=== PATIENT | male | born 1945 | race Two or more races ===

== ENCOUNTER 2018-09-28 07:32 | Day surgery (SDC) | payer OTHER, MEDICARE ==
--- NOTE | 2018-09-22 08:46 | HP ---
DATE OF ADMISSION: 09/28/2018 REASON FOR ADMISSION: Left inguinal hernia. BRIEF HISTORY: This is a 72-year-old gentleman who states he has had a left groin lump for the past several years. Patient states the lump has gotten a little larger. He has discomfort in the area when he does any type of Valsalva-type maneuver or bearing down. Patient has had no nausea, no vomiting, no change in bowel habits. PAST MEDICAL HISTORY: Significant for hypertension, hypercholesterolemia, diabetes, and kidney issues, and he has had bladder cancer. PAST SURGICAL HISTORY: None. MEDICATIONS: Enalapril, metformin, amlodipine, buspirone, and baby aspirin. ALLERGIES: None. SOCIAL HISTORY: Patient smokes. He drinks socially. PHYSICAL EXAMINATION: Abdomen: Soft, nontender, nondistended. He has a large left inguinal hernia with extension into the proximal scrotum. It is reducible. The left testicle and scrotum is within normal limits. On the right side, there is no obvious hernia. There is some laxity noted. Right scrotum and testicle is within normal limits. IMPRESSION/PLAN: Large left inguinal hernia: This is a 72-year-old gentleman who is symptomatic from a very large left inguinal hernia. At this point, we have discussed the various surgical approaches for this problem, and I think the patient should undergo a repair. Patient will be scheduled for a laparoscopic left inguinal hernia repair with mesh, at the time of surgery I will examine the right side, and if occult hernia is identified, it will be repaired at the same setting. If no hernia is noted, a piece of mesh will be placed in direct inguinal floor for reinforcement. The indications, alternatives, and complications of the procedure are discussed. Questions answered. We will plan to obtain written consent the day of surgery. VLADIMIR VICTORIA M.D. [id number] MTDFlako
[2018-09-27 14:52] VITALS: BMI 22.6
[2018-09-28] MEDS ORDERED: BUPIVACAINE HCL/PF 0.5% (5MG/ML) 10 ML VIAL ONE (07:51)
[2018-09-28] MEDS ORDERED: DEXAMETHASONE SOD PHOSPHATE/PF 10 MG/ML SDV ONE (07:51)
[2018-09-28] MEDS ORDERED: MIDAZOLAM HCL 2 MG/2 ML SINGLE DOSE VIAL ONE ×2 (07:52)
[2018-09-28] MEDS ORDERED: ceFAZolin SODIUM 1 GM VIAL ONE (07:58)
[2018-09-28] MEDS ORDERED: TAMSULOSIN HCL 0.4 MG CAP ONE (08:00)
[2018-09-28] MEDS ORDERED: TAMSULOSIN HCL 0.4 MG CAP PO ONE (08:30)
[2018-09-28] MEDS ORDERED: DEXAMETHASONE SOD PHOSPHATE 4 MG/1 ML VIAL ONE (08:37)
[2018-09-28] MEDS ORDERED: LIDOCAINE HCL/PF 2% SDV 5ML VIAL ONE (08:37)
[2018-09-28] MEDS ORDERED: ROCURONIUM BROMIDE 50 MG/5 ML VIAL ONE (08:37)
[2018-09-28] MEDS ORDERED: PROPOFOL 20 ML ONE (08:37)
[2018-09-28] MEDS ORDERED: ONDANSETRON 4 MG/2 ML VIAL ONE (08:37)
[2018-09-28] MEDS ORDERED: ceFAZolin SODIUM 1 GM VIAL IVPB ONE (09:07)
[2018-09-28] MEDS ORDERED: NEOSTIGMINE METHYLSULFATE 0.5 MG/1 ML - 10 ML MDV ONE (09:46)
[2018-09-28] MEDS ORDERED: GLYCOPYRROLATE 0.2 MG/1 ML VIAL ONE (09:47)
--- NOTE | 2018-09-28 10:24 | HP ---
DATE OF ADMISSION: 09/28/2018 BRIEF HISTORY: This is a redictation of an H and P due to [facility] Guidelines of 30 days. Please refer to original H and P from August 2018 for complete details. This is a 72-year-old gentleman admitted for left groin pain secondary to an inguinal hernia. He is now here for operative repair. PAST MEDICAL HISTORY: Hypertension, hypercholesterolemia, diabetes, kidney issues, and bladder cancer. PAST SURGICAL HISTORY: None. MEDICATIONS: Enalapril, metformin, amlodipine, buspirone, and baby aspirin. ALLERGIES: None. SOCIAL HISTORY: Patient smokes, drinks socially. PHYSICAL EXAMINATION: Gastrointestinal/Genitourinary: He has a large left inguinal hernia with extension into the proximal scrotum. The hernia was reducible. Left testicle and scrotum were within normal limits. On the right side, there is no obvious hernia but a large amount of laxity. Right scrotum and testicle are within normal limits. IMPRESSION/PLAN: Very large left inguinal/scrotal hernia. Patient is here today for attempt at laparoscopic repair of the hernia and examination of the right. Haven MORENO [id number]
[2018-09-28 11:19] VITALS: TEMP 97.6
[2018-09-28] MEDS ORDERED: oxyCODONE HCL 5 MG TABLET PO PRN (11:25)
[2018-09-28] MEDS ORDERED: ONDANSETRON 4 MG/2 ML VIAL IVPUSH PRN (11:25)
[2018-09-28] MEDS ORDERED: LACTATED RINGERS SOLUTION 1,000 ML IV SCH (11:30)
[2018-09-28 12:44] VITALS: BP 101/54; PULSE 84
--- NOTE | 2018-09-29 06:56 | OP ---
DATE OF OPERATION: 09/28/2018 PREOPERATIVE DIAGNOSIS: Large left inguinal scrotal hernia. POSTOPERATIVE DIAGNOSIS: Large left inguinal scrotal hernia, large left indirect inguinal hernia, right indirect inguinal hernia. PROCEDURE: Bilateral laparoscopic inguinal herniorrhaphy with mesh. SURGEON: Dejan Duenas MD DIVISION [employer]FFIC SUPERINTENDENT: Felix Davis DO ANESTHESIA: Meera Garcia MD (general). ESTIMATED BLOOD LOSS: Minimal. SPECIMEN: None. INDICATIONS FOR PROCEDURE: This is a 72-year-old gentleman with a large left inguinal scrotal hernia. He is symptomatic from this hernia and wished to have this repaired. DESCRIPTION OF PROCEDURE: Patient was identified and appropriately positioned on the operating room table. After placement of general anesthesia, the abdomen was prepped and draped in the usual sterile fashion with ChloraPrep. An infraumbilical incision was made deep into the subcutaneous tissues. The fascia of the rectus muscle on the left identified, divided sharply. The muscle split. Under direct vision, a dissector balloon followed by structural balloon placed. Also, under direct vision, a suprapubic 11-mm port placed. The following structures on the left side identified: Pubic tubercle, Coopers ligament, inferior epigastric vessels, spermatic cord, and lateral abdominal wall. During this dissection, the patient had a very large indirect left inguinal hernia sac, which was reduced back into the preperitoneal space. A 5 x 6 piece of Versatex mesh was keyhole placed through the suprapubic port site. The mesh wrapped around the cord structures laterally to reconstruct the internal ring. Laterally, the mesh was anchored to the anterior abdominal wall and lateral abdominal wall. Medially, the mesh anchored to the anterior abdominal wall, pubic tubercle, and Coopers ligament. Upon completion of the left side, similar structures on the right side identified. On the patients right side, he had a smaller indirect inguinal hernia sac. It was reduced back into the preperitoneal space with blunt dissection. Another 5 x 6 piece of Versatex mesh was keyholed, then placed through the suprapubic port site. The mesh wrapped around the cord structures laterally to reconstruct the internal ring. Medially, there was good overlap of the mesh in the midline. Medially, the mesh anchored to anterior abdominal wall, pubic tubercle, and Coopers ligament. All anterior abdominal wall and lateral abdominal wall anchors were placed under direct counter palpation. The anchoring system was AbsorbaTack, and the mesh was Versatex. The ports were removed. Port sites were noted to be hemostatic. The fascia at both port sites were reapproximated with interrupted 0 Vicryl suture. The skin was all closed with 4-0 subcuticular Biosyn followed by Dermabond. At the conclusion of the case, sponge counts were correct. ATTESTATION: Brief operative note handwritten on the preprinted form. [facility] will be queried prior to giving any narcotics. Haven MORENO [id number] cc: Ney Plascencia MD MTDD
== END 2018-09-28 12:44 | disposition home or self-care (01) ==
LOC: JASU-SURG 07:32 → EDBD 11:00 → JASU-SURG 12:44
PROVIDERS: ATTEND Surgery
PROC: 0YUA4JZ Supplement Bilateral Inguinal Region with Synthetic Substitute, Percutaneous Endoscopic Approach (ICD-10-PCS; principal; 2018-09-28 09:00)
DX: K40.20 Bilateral inguinal hernia, without obstruction or gangrene, not specified as recurrent (principal)
CPT/HCPCS: 82962; 94760

== ENCOUNTER 2019-03-07 09:46 | Day surgery (SDC) | payer OTHER, MEDICARE | END 2019-03-07 12:27 | disposition home or self-care (01) | LOC: JASU-ENDO 09:46 ==

== ENCOUNTER 2019-03-28 09:24 | Day surgery (SDC) | payer OTHER, MEDICARE ==
[2019-03-27 12:45] VITALS: BMI 25.9
[2019-03-28 11:15] VITALS: TEMP 97.7
[2019-03-28 13:59] VITALS: BP 133/61; PULSE 60
--- NOTE | 2019-03-30 18:01 | PATH ---
Surgical Pathology Report Patient Name: JESUSITA JIMENEZ [facility]. Rec. #: [id number] /Age/Gender: 1945 (Age: 73) / M Account: [id number] Location: ASU-ENDOSCOPY Taken: 03/28/2019 Received: 03/28/2019 Reported: 03/30/2019 Physicians: Laron Espinoza D.O. Specimen(s) Received A: POLYPECTOMY PROXIMAL TRANSVERSE B: BX POLYP CECUM x2 C: BX POLYP MID TRANSVERSE COLON D: BX POLYP DESCENDING COLON E: BX POLYP SIGMOID COLON X2 F: BIOPSY POLYP DISTAL SIGMOID COLON G: BIOPSY POLYP RECTO-SIGMOID COLON Clinical History Screening. Postoperative diagnosis: Colon polyps, hemorrhoids Final Diagnosis A. PROXIMAL TRANSVERSE COLON POLYP, POLYPECTOMY: TUBULAR ADENOMA. B. CECUM POLYP X 2, POLYPECTOMY: TUBULAR ADENOMA, TWO FRAGMENTS. C. MID TRANSVERSE COLON POLYP, POLYPECTOMY: HYPERPLASTIC POLYP. D. DESCENDING COLON POLYP, POLYPECTOMY: TUBULAR ADENOMA. E. SIGMOID COLON POLYP X 2, POLYPECTOMY: TUBULAR ADENOMA, MULTIPLE FRAGMENTS. F. DISTAL SIGMOID COLON POLYP, POLYPECTOMY: TUBULAR ADENOMA. G. RECTOSIGMOID COLON POLYP, POLYPECTOMY: TUBULAR ADENOMA. Electronically Signed Ida Singleton M.D. Gross Description A. Received in formalin, labeled "proximal transverse, polypectomy" are 2 cervantes, irregular portions of soft tissue measuring 0.2 cm and 0.4 cm. in greatest dimension. The specimens are submitted in toto in one cassette. B. Received in formalin, labeled "bx polyp cecum x2" are 2 cervantes, irregular portions of soft tissue each measuring 0.3 cm. in greatest dimension. The specimens are submitted in toto in one cassette. C. Received in formalin, labeled "bx polyp mid transverse colon" are three cervantes, irregular portions of soft tissue each measuring 0.2 cm. in greatest dimension. The specimens are submitted in toto in one cassette. D. Received in formalin, labeled "bx polyp descending colon" is a cervantes, irregular portion of soft tissue measuring 0.3 cm. in greatest dimension. The specimen is submitted in toto in one cassette. E. Received in formalin, labeled "bx polyp sigmoid colon x2" are 8 pieces of cervantes, irregular soft tissue ranging from 0.1-0.3 cm in greatest dimension. The specimen is submitted in toto in one cassette. F. Received in formalin, labeled "bx polyp distal sigmoid colon" is a cervantes, irregular portion of soft tissue measuring 0.3 cm. in greatest dimension. The specimen is submitted in toto in one cassette. G. Received in formalin, labeled "bx polyp rectosigmoid" is a cervantes, irregular portion of soft tissue measuring 0.3 cm. in greatest dimension. The specimen is submitted in toto in one cassette. AE/03/29/2019 ebram/03/29/2019
== END 2019-03-28 12:05 | disposition home or self-care (01) ==
LOC: JASU-ENDO 09:24
PROVIDERS: ATTEND Internal Medicine Gastroenterology
PROC: 0DBL8ZX Excision of Transverse Colon, Via Natural or Artificial Opening Endoscopic, Diagnostic (ICD-10-PCS; 2019-03-28)
PROC: 0DBN8ZX Excision of Sigmoid Colon, Via Natural or Artificial Opening Endoscopic, Diagnostic (ICD-10-PCS; 2019-03-28)
PROC: 0DBM8ZX Excision of Descending Colon, Via Natural or Artificial Opening Endoscopic, Diagnostic (ICD-10-PCS; 2019-03-28)
PROC: 0DBH8ZX Excision of Cecum, Via Natural or Artificial Opening Endoscopic, Diagnostic (ICD-10-PCS; principal; 2019-03-28 10:31)
DX: Z12.11 Encounter for screening for malignant neoplasm of colon (principal); D12.0 Benign neoplasm of cecum; D12.4 Benign neoplasm of descending colon; D12.7 Benign neoplasm of rectosigmoid junction; D12.5 Benign neoplasm of sigmoid colon; D12.3 Benign neoplasm of transverse colon; K64.8 Other hemorrhoids
CPT/HCPCS: 88305-TC

== ENCOUNTER 2021-02-22 09:31 | Observation (INO) | payer OTHER, MEDICARE ==
[2021-02-22 10:07] VITALS: BMI 26.6
[2021-02-22] MEDS ORDERED: MECLIZINE HCL 25 MG TABLET (FP) PO ONE ×2 (10:40→11:33)
[2021-02-22] MEDS ORDERED: MECLIZINE HCL 25 MG TABLET (FP) ONE ×2 (10:43→11:44)
[2021-02-22 10:59] LABS: BASO % 0.6 % (0-2.0); EOS % 0.9 % (0-4.5); HEMATOCRIT 42.5 % (35.4-49); HEMOGLOBIN 14.5 GM/dL (11.7-16.9); LYMPH % 11.3 % (8-40); MCH 31.3 pg (25.7-33.7); MEAN PLT VOLUME 7.6 fl (7.5-11.1); MONO % 4.6 % (3.8-10.2); NEUT % 82.6 % (42.8-82.8); PLATELET COUNT 291 10^3/uL (134-434); RBC 4.62 M/mm3 (4.00-5.60); RDW 12.9 % (11.9-15.9); WHITE BLOOD COUNT 9.8 K/mm3 (4.0-10.0)
[2021-02-22 11:11] LABS: CHLORIDE 102 mmol/L (98-107); SODIUM 137 mmol/L (136-145)
[2021-02-22 11:13] LABS: BLOOD UREA NITROGEN 12.9 mg/dL (7-18); CALCIUM 8.8 mg/dL (8.5-10.1)
[2021-02-22 11:14] LABS: ALBUMIN 3.7 g/dl (3.4-5.0); ANION GAP 8 MMOL/L (8-16); CO2 27 mmol/L (21-32); GLUCOSE,RANDOM 185 mg/dL (74-106)
[2021-02-22 11:17] LABS: CREATININE 0.6 mg/dL (0.55-1.3); SGOT/AST 20 U/L (15-37); SGPT/ALT 32 U/L (13-61)
[2021-02-22 11:18] LABS: BILIRUBIN,TOTAL 0.8 mg/dL (0.2-1)
[2021-02-22 11:19] LABS: ALK PHOS 86 U/L (45-117)
[2021-02-22] MEDS ORDERED: diazePAM 5 MG TABLET PO ONE (14:12)
[2021-02-22] MEDS ORDERED: diazePAM 5 MG TABLET ONE (14:19)
[2021-02-22] MEDS ORDERED: MECLIZINE HCL 12.5 MG TABLET PO PRN (19:50)
[2021-02-22] MEDS: busPIRone HCL 5 MG TABLET PO SCH (21:46)
[2021-02-22] MEDS ORDERED: amLODIPine BESYLATE 10 MG TABLET (FP) PO SCH (22:00)
[2021-02-23] MEDS: INSULIN SLIDING SCALE (NOVOLOG) 1 VIAL SQ SCH ×2 (06:11→11:15)
[2021-02-23 08:48] LABS: BASO % 0.5 % (0-2.0); EOS % 1.1 % (0-4.5); HEMATOCRIT 45.6 % (35.4-49); HEMOGLOBIN 15.7 GM/dL (11.7-16.9); LYMPH % 15.7 % (8-40); MCH 31.8 pg (25.7-33.7); MCHC 34.5 g/dl (32.0-35.9); MEAN CELL VOLUME 92.1 fl (80-96); MEAN PLT VOLUME 7.8 fl (7.5-11.1); MONO % 4.8 % (3.8-10.2); NEUT % 77.9 % (42.8-82.8); PLATELET COUNT 299 10^3/uL (134-434); RBC 4.95 M/mm3 (4.00-5.60); RDW 12.9 % (11.9-15.9); WHITE BLOOD COUNT 9.4 K/mm3 (4.0-10.0)
[2021-02-23] MEDS: MECLIZINE HCL 12.5 MG TABLET PO SCH ×2 (08:57→13:34)
[2021-02-23] MEDS: busPIRone HCL 5 MG TABLET PO SCH (09:01)
[2021-02-23 09:02] LABS: CALCIUM 9.4 mg/dL (8.5-10.1)
[2021-02-23 09:03] LABS: ALBUMIN 3.8 g/dl (3.4-5.0); BLOOD UREA NITROGEN 12.3 mg/dL (7-18); MAGNESIUM 2.3 mg/dL (1.8-2.4)
[2021-02-23 09:06] LABS: CREATININE 0.6 mg/dL (0.55-1.3); PHOSPHOROUS 2.9 mg/dL (2.5-4.9)
[2021-02-23 09:08] LABS: BILIRUBIN,TOTAL 1.2 mg/dL (0.2-1); TOT PROT 7.3 g/dl (6.4-8.2)
[2021-02-23 09:09] VITALS: TEMP 98.5
[2021-02-23] MEDS ORDERED: HYDROCHLOROTHIAZIDE 25 MG TABLET (FP) PO SCH (10:00)
[2021-02-23] MEDS ORDERED: ENALAPRIL MALEATE 10 MG TABLET PO SCH (10:00)
[2021-02-23] MEDS ORDERED: DONEPEZIL HCL 5 MG TABLET (FP) PO SCH (10:00)
[2021-02-23] MEDS ORDERED: ATORVASTATIN CA 20 MG TABLET (FP) PO SCH (10:00)
[2021-02-23] MEDS ORDERED: ENOXAPARIN NA (PORCINE) 40 MG/0.4 ML DISP.SYRIN SQ SCH (10:00)
[2021-02-23 14:15] VITALS: BP 119/71; PULSE 99
== END 2021-02-23 14:33 | disposition home or self-care (01) ==
LOC: JER 09:31 → JERBED 15:00 → INTOOBSV 15:00 → J6S 21:18
PROVIDERS: ADMIT Internal Medicine; ATTEND Nurse Practitioner Family
PROC: 3E023GC Introduction of Other Therapeutic Substance into Muscle, Percutaneous Approach (ICD-10-PCS; principal; 2021-02-22)
DX: R42 Dizziness and giddiness (principal); R41.3 Other amnesia; G30.0 Alzheimer's disease with early onset; F02.80 Dementia in other diseases classified elsewhere, unspecified severity, without behavioral disturbance, psychotic disturbance, mood disturbance, and anxiety; G93.89 Other specified disorders of brain; E78.5 Hyperlipidemia, unspecified; I10 Essential (primary) hypertension; F41.9 Anxiety disorder, unspecified; F17.210 Nicotine dependence, cigarettes, uncomplicated
CPT/HCPCS: 36415; 70450-TC; 80053; 82550; 82962; 83036; 83735; 84100; 84484; 85025; 93005; 93010; 96372; 97116-GP; 97161-GP; 99285-25; C9803; G0378; U0003; U0005